=== PATIENT | female | born 1995 | race Caucasian/White ===

== ENCOUNTER 2020-11-04 10:54 | Observation (INO) | payer OTHER ==
[~2020-11-04] VITALS: Ht 162.6 cm; Wt 70.0 kg
== END 2020-11-04 11:40 | disposition home or self-care (01) ==
LOC: 8 EST LDRP 10:54
PROVIDERS: ADMIT Obstetrics & Gynecology; ATTEND Obstetrics & Gynecology
DX: O42.913 Preterm premature rupture of membranes, unspecified as to length of time between rupture and onset of labor, third trimester (principal); O26.893 Other specified pregnancy related conditions, third trimester; R10.2 Pelvic and perineal pain; Z3A.29 29 weeks gestation of pregnancy
CPT/HCPCS: 59025; G0378; 99281